=== PATIENT | female | born 1960 | race Caucasian/White ===

== ENCOUNTER → 2016-05-29 | Outpatient (CLI) | payer MEDICAID ==
[~2016-05-29] MED LIST: CIPROFLOXACIN500 MG PO; ESTRACE 2MG. TAB2 MG PO; LEVOTHYROXINE0.05 MG NG; PHENAZOPYRIDIN200 MG PO; PHENERGAN 25MG.25 M1 PO; TRAMADOL50 M1 PO; ZOCOR20 MG PO
--- NOTE | 2016-06-01 12:09 | RADIOLOGY REPORT PS360 ---
ESOPHAGUS (BA. SWALLOW) Ordering Physician: Luther Demarco MD Patient Age: 56 years: Female HISTORY: RT THYROID NODULE TECHNIQUE: Images of the esophagus performed by Dr. Guadalupe following patient ingestion of barium. AP and lateral projection. 1 minute 45 seconds fluoroscopy time utilized FINDINGS Cervical esophagus appears satisfactory. Normal distensibility. No mass. No web. Normal cricopharyngeus muscle. No displacement. Esophagus as well as trachea Remain fairly midline with no significant displacement. The vallecula and piriform sinuses unremarkable. Thoracic esophagus appears satisfactory with no lesions. No hiatal hernia. Normal distensibility. --- IMPRESSION: ------- 1. normal appearing cervical and thoracic esophagus. No lesions nor significant appearing extrinsic compression
--- NOTE | 2016-06-09 17:21 | RADIOLOGY REPORT PS360 ---
US CYST ASPIRATION, FNA/W GUIDANCE, US THYROID HISTORY: RT THYROID NODULE ORDERING PHYSICIAN: Luther Demarco MD PATIENT AGE: 56 years COMPARISON: 05/10/2016 ultrasound Prebiopsy ultrasound. The nodule of interest is very difficult to ascertain and measures less than 1 cm and is difficult to distinguish from adjacent thyroid gland. TECHNIQUE: Following obtaining informed consent, using aseptic technique and local anesthesia with buffered lidocaine, fine-needle aspiration was performed of the nodule of interest using sonographic guidance. 3 passes were made into the nodule with a 25-gauge needle. Specimen was given to cytology. The patient tolerated the procedure well without evidence of immediate complications and left the ultrasound suite in stable condition. CYTOLOGY:Nondiagnostic specimen IMPRESSION: Nondiagnostic FNA. Due to the difficulty in ascertaining the lesion, would recommend follow-up ultrasound as originally mentioned in the ultrasound exam of 05/10/2016 as opposed to repeat biopsy. Nuclear imaging of the thyroid gland may also be of further value.
== END ==
LOC: RAD 05-23 10:00
PROC: 0G9H3ZX Drainage of Right Thyroid Gland Lobe, Percutaneous Approach, Diagnostic (ICD-10-PCS; principal; 2016-05-29)
DX: E04.1 Nontoxic single thyroid nodule (principal)

== ENCOUNTER 2016-09-07 10:05 | Day surgery (SDC) | payer MEDICAID ==
[~2016-09-07] VITALS: Ht 162.6 cm; Wt 108.4 kg
[~2016-09-07 10:05] MED LIST changes: +AZITHROMYCIN; +BISOPROLOL 5MG T5 MG PO; +LISINOPRIL/HCTZ1 TA3 FT
[2016-09-07 11:21] LABS: HEMOGLOBIN 12.6 g/dL (12.2-16.2); LYMPH # 2.9 K/mm3 (0.7-4.5); LYMPH % 31.8 % (10-50.0)
[2016-09-07 11:22] LABS: BUN 21 mg/dL (7-18)
[2016-09-07 11:23] LABS: GFR (ESTIMATED) 74 ML/MIN (59-)
--- NOTE | 2016-09-07 14:06 | Anesthesia Record ---
Anesthesia Record Part I Total IV fluids: 1400 EBL (ml): 0 Urine Output: 0 B/P: 112/63 % SaO2: 95 Pulse: 83 Resps: 12 Temp: 98 Patient is: Awake, Stable Stable to PACU at: 1400 at 1406
--- NOTE | 2016-09-07 14:07 | Anesthesia Record ---
Anesthesia Record Part II Discharge time: 1430 Destination: Same day surgery PACU nurse assessment review? Yes Patient is: Awake, Stable Anesthesia complications? No at 1406
[2016-09-07 16:06] VITALS: BP 102/64
--- NOTE | 2016-09-21 12:54 | Operative Note-Urology ---
Procedure/Operative Record Procedure DATE OF PROCEDURE: 09/07/16 PREOPERATIVE DIAGNOSIS: Bladder stone and eroded suture material POSTOPERATIVE DIAGNOSIS: Same PROCEDURE PERFORMED: Cystoscopy with laser cystolitholapaxy of stone and suture material SURGEON: Asa Osman ANESTHESIA: Gen. BRIEF HISTORY: 56-year-old white female with a history of bladder stones secondary to eroded suture material in the bladder. Had a recurrence of some suprapubic discomfort and recent cystoscopy showed a recurrent stone at the 2 o'clock position near the bladder neck. OPERATIVE NOTE: Patient taken to the operating room after informed consent was obtained. Placed Ring table in the supine position and general anesthesia administered. Preoperative antibiotics administered and sequential compression devices placed. She was then placed into the dorsal lithotomy position and prepped and draped in the standard surgical fashion. The 21 [place]er cystoscope placed into the urethra and into the bladder. The bladder was examined in a systematic fashion and was within normal limits other than the small stone noted at the 2 o'clock position near the bladder neck. This was very difficult to see with the 30 degree lens R laser fiber was passed through the scope and we were able to position our scope so that the stone was fragmented and extracted off of the bladder wall. Underneath the stone was the clear suture material and the suture material was also treated with the holmium laser fiber. After treatment the stone was removed and the scope removed. Patient tolerated procedure well no cold medications discharged to the recovery room in good condition. EBL (ml): 0 IMPRESSION: Recurrent bladder stone on eroded suture material in the bladder PLAN: Cystoscopy and bladder stone removal successful today. Suture material also treated and hopefully there is no further recurrences. at 1254
== END 2016-09-07 15:50 | disposition home or self-care (01) ==
LOC: SDC 10:05
PROVIDERS: Otolaryngology; Urology
PROC: 0TCB8ZZ Extirpation of Matter from Bladder, Via Natural or Artificial Opening Endoscopic (ICD-10-PCS; principal; 2016-09-07 12:00)
DX: N21.0 Calculus in bladder (principal)
CPT/HCPCS: J2405

== ENCOUNTER 2016-12-28 16:44 | Emergency (ER) | payer MEDICAID ==
[~2016-12-28] VITALS: Ht 170.2 cm; Wt 112.5 kg
[2016-12-28 17:18] LABS: URINE BILIRUBIN - DIPSTICK NEGATIVE (NEG); URINE BLOOD TRACE-INTACT (NEG)
--- OUTSIDE RECORDS SUMMARY | 2016-12-28 17:18 | External Medical Summary Rpt | CCD ---
Author Author [facility] Organization [facility] Address Unknown Phone Unavailable Purpose Continuity of Care Document - through 2016
--- OUTSIDE RECORDS SUMMARY | 2016-12-28 17:18 | External Medical Summary Rpt ---
Author Author [facility] Organization [facility] Address Unknown Phone Unavailable Care Team Providers Care Engineering Production Worker Name Role Phone JANETH STAPLES PCP [phone] Encounter [facility] Date(s): 02/03/16 - 02/28/16 [facility] [address] [place] [address]- Discharge Disposition: OP Self Care or Home Attending Physician: KAYLEY KELLY MD-ONC Admitting Physician: KAYLEY KELLY MD-ONC Referring Physician: SERA WOLFE MD-BEBETO Reason for Visit OTH TYPES OF NON-HODGKIN LYMPHOMA, LYMPH NODES MULT SITE Vital Signs No data available for this section Problem List Condition Effective Status Health Informant Dates Status Arthritis(Co Active nfirmed) COPD(Confirm Active ed) Hyperlipidem Active ia(Confirmed ) Lymphoma(Con Active firmed) Sleep Active apnea(Confir med) Thyroid Active disease(Conf irmed) Allergies, Adverse Reactions, Alerts No Known Medication Allergies Medications No data available for this section Results No data available for this section Immunizations No data available for this section Procedures No data available for this section Social History Social History Response Type Smoking Status Former smoker; Years of Tobacco Use 31; Packs/Tins Daily 1.5; Used Tobacco, but Quit Yes; Month Tobacco Last Used 2009 Assessment and Plan No data available for this section Hospital Discharge Instructions No data available for this section
--- OUTSIDE RECORDS SUMMARY | 2016-12-28 17:18 | External Medical Summary Rpt ---
Author Author [facility] Organization [facility] Address Unknown Phone Unavailable Care Team Providers Care Glassware Verifier Name Role Phone JANETH STAPLES PCP [phone] Encounter [facility] Date(s): 02/03/16 - 02/28/16 [facility] [address] [place] [id number]- [phone] Discharge Disposition: OP Self Care or Home [...]
--- OUTSIDE RECORDS SUMMARY | 2016-12-28 17:18 | External Medical Summary Rpt | CCD ---
Author Author [facility] Address Unknown Phone Purpose Continuity of Care Document - through 2016
--- OUTSIDE RECORDS SUMMARY | 2016-12-28 17:19 | External Medical Summary Rpt | CCD ---
Author Author , [facility] SPEARS Address Unknown Phone [email or web address] Immunization Name Date Rout CVX Reac Dose Comm Prov Is Faci e tion ent ider Refu lity Give sed n Infl 10-2 Intr 140 0.5 Hist [facility] No [facility] uenz 5-20 amus mL oric ALEK AID0 a, 17 cula al AYMA 3914 P-Fr r Info N ee rmat ion - Sour ce Unsp ecif ied PCV1 10-2 Intr 133 0.5 Hist KHAF No RITE 3 5-20 amus mL oric ALEK AID0 17 cula al AYMA 3914 r Info N rmat ion - Sour ce Unsp ecif ied
--- OUTSIDE RECORDS SUMMARY | 2016-12-28 17:19 | External Medical Summary Rpt | CCD ---
Author Author , REGAN SPEARS Address Unknown Phone [email or web address] Immunization Name Date Rout CVX Reac Dose [...]
--- OUTSIDE RECORDS SUMMARY | 2016-12-28 17:19 | External Medical Summary Rpt ---
Author Author VIVIANEDOROTHY Eaton, [facility] [employer] Organization [facility] [employer] Address Unknown Phone Unavailable Results Basic metabolic panel in Blood Observa Value Referen Units Interpr Notes Date tion ce etation Range Urea 7 - 18 mg/dL High No Sep 07 nitrogen informati 2016 [Mass/vol on in 11:08 AM ume] in source Serum or data Plasma Calcium 8.5 - mg/dL Normal No Sep 07 [Mass/vol 10.1 informati 2016 ume] in on in 11:08 AM Serum or source Plasma data Chloride 98 - 107 mmoL/L Normal No Sep 07 [Moles/vo informati 2016 lume] in on in 11:08 AM Serum or source Plasma data Carbon 21.0 - mmoL/L Normal No Sep 07 dioxide, 32.0 informati 2016 total on in 11:08 AM [Moles/vo source lume] in data Serum or Plasma Creatinin 0.55 - mg/dL Normal No Sep 07 e 1.02 informati 2016 [Mass/vol on in 11:08 AM ume] in source Serum or data Plasma Estimated 59- ML/MIN No REFERENCE Sep 07 informati RANGE: 2017 glomerula on in >60 11:08 AM r source ML/MIN/1. filtratio data 73 SQUARE n rate METERSIf (GF this patient is -A merican, then multiply theresult by 1.210. Glucose 74 - 106 mg/dL High No Sep 07 [Mass/vol informati 2016 ume] in on in 11:08 AM Serum or source Plasma data Potassium 3.5 - 5.1 mmoL/L Normal No Sep 07 informati 2016 [Moles/vo on in 11:08 AM lume] in source Serum or data Plasma Sodium 136 - 145 mmoL/L Normal No Sep 07 [Moles/vo informati 2016 lume] in on in 11:08 AM Serum or source Plasma data CBC W Auto Differential panel in Blood Observa Value Referen Units Interpr Notes Date ti ce etation Range Basophils 0 - 0.2 K/MM3 Normal No Sep 07 inform2016 [#/volume on in 11:08 AM ] in source Blood by data Automated count Basophils 0.1 - 2.0 % Normal No Sep 07 / inform2016 leukocyte on in 11:08 AM s in source Blood by data Automated count Eosinophi 0.0 - 0.4 K/mm3 Normal No Sep 07 ls informati 2016 [#/volume on in 11:08 AM ] in source Blood by data Automated count Eosinophi 0.1 - % Normal No Sep 07 ls/100 12.0 informati 2016 leukocyte on in 11:08 AM s in source Blood by data Automated count Granulocy 1.8 - 7.8 K/mm3 Normal No Sep 07 swapnil informati 2016 [#/volume on in 11:08 AM ] in source Blood by data Automated count Granulocy 37.0 - % Normal No Sep 07 swapnil/100 80.0 informati 2016 leukocyte on in 11:08 AM s in source Blood by data Automated count Hematocri 37.0 - % Normal No Sep 07 t [Volume 47.0 informati 2016 on in 11:08 AM Fraction] source of Blood data Hemoglobi 12.2 - g/dL Normal No Sep 07 n 16.2 informati 2016 [Mass/vol on in 11:08 AM ume] in source Blood data Lymphocyt 0.7 - 4.5 K/mm3 Normal No Sep 07 es inform2016 [#/volume on in 11:08 AM ] in source Unspecifi data ed specimen by Automated count Lymphocyt 10 - 50.0 % Normal No Sep 07 es inform2016 [#/volume on in 11:08 AM ] in source Unspecifi data ed specimen by Automated count Erythrocy 27 - 31.2 pg Low No Sep 07 te mean 2016 corpuscul on in 11:08 AM ar source hemoglobi data n [Entitic mass] Erythrocy 31.8 - g/dl Normal No Sep 07 te mean 35.4 inform2016 corpuscul on in 11:08 AM ar source hemoglobi data n concentra tion [Mass/vol ume] by Automated count Erythrocy 82.2 - fl Normal No Sep 07 te mean 97.8 informati 2016 corpuscul on in 11:08 AM ar volume source [Entitic data volume] by Automated count Monocytes 0.1 - 1.0 K/mm3 Normal No Sep 07 informati 2016 [#/volume on in 11:08 AM ] in source Blood by data Automated count Monocytes 1.7 - 9.3 % Normal No Sep 07 /100 informati 2016 leukocyte on in 11:08 AM s in source Blood by data Automated count Platelet 7.4 - fl Normal No Sep 07 mean 10.4 informati 2016 volume on in 11:08 AM [Entitic source volume] data in Blood by Automated count Platelets 142 - 424 K/mm3 Normal No Sep 07 informati 2016 [#/volume on in 11:08 AM ] in source Blood data Erythrocy 4.2 - 5.4 M/mm3 Normal No Sep 07 swapnil informati 2016 [#/volume on in 11:08 AM ] in source Amniotic data fluid Erythrocy 11.5 - % Normal No Sep 07 te 17.5 informati 2016 distribut on in 11:08 AM ion width source [Entitic data volume] by Automated count Leukocyte 4.8 - K/MM3 Normal No Sep 07 s 10.8 informati 2016 [#/volume on in 11:08 AM ] in source Blood data Basic metabolic panel in Blood Observa Value Referen Units Interpr Notes Date tion ce etation Range Urea 7 - 18 mg/dL High No Jul 6 nitrogen inform2016 [Mass/vol on in 10:00 AM ume] in source Serum or data Plasma Calcium 8.5 - mg/dL Normal No Jul 6 [Mass/vol 10.1 informati 2016 ume] in on in 10:00 AM Serum or source Plasma data Chloride 98 - 107 mmoL/L Normal No Jul 6 [Moles/vo informati 2016 lume] in on in 10:00 AM Serum or source Plasma data Carbon 21.0 - mmoL/L Normal No Jul 6 dioxide, 32.0 informati 2016 total on in 10:00 AM [Moles/vo source lume] in data Serum or Plasma Creatinin 0.55 - mg/dL Normal No Jul 6 e 1.02 informati 2016 [Mass/vol on in 10:00 AM ume] in source Serum or data Plasma Estimated 59- ML/MIN No REFERENCE Kayden 6 informati RANGE: 2017 glomerula on in >60 10:00 AM r source ML/MIN/1. filtratio data 73 SQUARE n rate METERSIf (GF this patient is -A merican, then multiply theresult by 1.210. Glucose 74 - 106 mg/dL High No Jul 25 [Mass/vol informati 2017 ume] in on in 10:00 AM Serum or source Plasma data Potassium 3.5 - 5.1 mmoL/L Normal No Jul 25 informati 2016 [Moles/vo on in 10:00 AM lume] in source Serum or data Plasma Sodium 136 - 145 mmoL/L Normal No Jul 25 [Moles/vo informati 2017 lume] in on in 10:00 AM Serum or source Plasma data
[2016-12-28 17:25] LABS: HEMOGLOBIN 12.4 g/dL (12.2-16.2); LYMPH # 3.4 K/mm3 (0.7-4.5); LYMPH % 27.7 % (10-50.0)
--- NOTE | 2016-12-28 17:44 | Emergency Room Report ---
See Addendum History of Present Illness Time Seen by [id number] Presenting Problem in Triage Pt arrived:Walked Presenting Problem:PT COMPLAINS OF LEFT SIDED [PAIN FOR 2 DAYS. 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 N Clinical Suspician of Infection? N Mental Status: 1 - Regular (Normal Baseline) Sepsis Risk:Low Sepsis Risk Have you (or family members/close friends) recently traveled outside the [place]? N If Yes, where/when: Have you had exposure to infectious disease within the past month? TB? Other? Specify: 56 years old white female with history of lung disease and bladder tuck. He developed left-sided abdominal pain with no nausea vomiting no diarrhea no dysuria or hematuria frequency. It is sharp in character with no radiation, no fever or chills. Source patient, RN notes reviewed, family Exam Limitations no limitations ALLERGIES Coded Allergies: No Known Allergies (09/14/16) Home Medications Reported Medications Levothyroxine Sodium (Levothyroxine) 0.05 MG NG DAILY BISOPROLOL FUMARATE (Bisoprolol 5MG) 2.5 MG PO DAILY Lisinopril & Hctz (Lisinopril-Hctz 10-12.5 MG Tab) 1 TAB FT DAILY Azithromycin 1 POW NA History Medical History General Angina: No [place]: No Hypertension? Yes Hyperlipidemia? No CHF? No COPD? Yes Asthma? No Hernia? No CVA? No Seizures? No Diabetes? No UTI? Yes Stones? Yes GB Disease: No Hepatitis? No Cataracts? No Glaucoma? No MRSA? No TB? No Cancer? Yes Site: LYMPH NODE LEFT NECK More? 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 Respiratory no symptoms reported Cardiovascular no symptoms reported Gastrointestinal see HPI, abdominal pain Genitourinary no symptoms reported. Musculoskeletal no symptoms reported Skin no symptoms reported Psychiatric/Neurological no symptoms reported Physical Exam Vital Signs Vital Signs Date Time Temp Pulse Resp B/P Pulse O2 O2 Flow FiO2 Ox Delivery Rate 12/28 1918 18 12/28 1816 99.1 86 20 129/73 95 12/28 1747 20 12/28 1701 99.1 86 22 129/73 95 12/28 1658 99.1 86 22 129/73 95 - WBC >12,000 or <4,000 or 10% bands? 2 or more SIRS Criteria Met? B/P:129/73 MAP:91 Creatinine >2.0? UA output<0.5ml/kg/hr for 2 hrs? Platelet count >100,000? Lactate >2.0mmol/1? INR >1.2 or PTT > than 60 sec? Evidence of Organ Dysfunction? Provider documented clinical suspician of infection? N Sepsis Criteria Count: 1 Sepsis Risk: Low Sepsis Risk General Appearance normal appearance, WD/WN Eye Exam - bilateral eye normal exam, bilateral eye PERRL, bilateral eye EOMI Ear, Nose, Throat hearing grossly normal, normal ENT inspection Neck normal inspection, non-tender, supple, full range of motion Respiratory Status Yes: trachea midline, chest symmetrical, non tender chest. No: respiratory distress. Lung Sounds bilateral: normal breath sounds, lungs clear. Cardiovascular normal exam, regular rate/rhythm, no peripheral edema, no gallop, no JVD, no murmur, no rub, normal peripheral pulses Peripheral Pulses Pulses normal Yes Gastrointestinal soft, no pulsatile mass, no guarding, rebound, tenderness, abdomen is soft abdomen with LEFT sided abdominal tenderness, there is no LEFT CVA tenderness, there is rebound tenderness on the LEFT side of the abdomen, positive bowel sounds. Equal femoral pulses bilaterally. Back normal inspection, no CVA tenderness, no vertebral tenderness Neurologic alert, legal officer II-XII nml as tested, normal exam, oriented x 3 Reflexes Reflexes normal Yes Mental status normal mood/affect Skin intact, normal color, warm/dry Medical Decision Making LABS/Meds/Orders Pt receiving controlled substance in ED? No Results/Orders Laboratory Tests 12/28/16 171: Troponin I < 0.02 12/28/161714: Sodium 137, Potassium 3.9, Chloride 100, Carbon Dioxide 30, BUN 18, Creatinine 1.0, Estimated Creat Clear 112, Estimated GFR (MDRD) 57 L, Glucose 144 H, Calcium 9.0, Total Bilirubin 0.3, AST 17, ALT 34, Alkaline Phosphatase 59, Total Protein 7.7, Albumin 3.8, Globulin 3.9 H, Albumin/Globulin Ratio 1.0 L, Amylase 36, Lipase 302, WBC 12.3 H, RBC 4.70, Hgb 12.4, Hct 39.0, MCV 82.9, RDW 13.6, Plt Count 228, MPV 9.4, Gran % 66.8, Gran # 8.2 H, Lymphocytes % 27.7, Monocytes % 3.3, Eosinophils % 1.8, Basophils % 0.5, Lymphocytes # 3.4, Monocytes # 0.4, Eosinophils # 0.2, Basophils # 0.1, PUBS MCHC 31.9, MCH 26.5 L 12/28/16 1709: Urine Color YELLOW, Urine Appearance CLEAR, Urine pH 6.0, Ur Specific [place] 1.025, Urine Protein NEGATIVE, Urine Ketones NEGATIVE, Urine Blood TRACE-INTACT, Urine Nitrate NEGATIVE, Urine Bilirubin NEGATIVE, Urine Urobilinogen 0.2, Ur Leukocyte Esterase TRACE H, Urine RBC OCC, Urine WBC 5-10, Ur Squamous Epith Cells 5-10, Urine Bacteria 3+, Urine Glucose NEGATIVE Current Medication Orders Sig/Georgina Start time Last Medication Dose Route Stop Time Status Admin Ceftriaxone Sodium 1 GM ONCE ONE 12/28 1914 AC 12/28 Sodium Chloride 50 ML IV 12/28 Morphine Sulfate 2 MG ONCE ONE 12/28 1914 DC 12/28 IV 12/28 Ceftriaxone Sodium 0 .STK-MED ONE 12/28 1913 DC IV Sodium Chloride 50 ML .STK-MED ONE 12/28 1913 DC IV Morphine Sulfate 0 .STK-MED ONE 12/28 1912 DC .ROUTE Iopamidol 75 ML ONCE ONE 12/28 1899 UNV 12/28 IV 12/28 1900 185 Sodium Chloride 10 ML ONCE ONE 12/28 1899 UNV 12/28 IV 12/28 1900 185 Ketorolac 30 MG ONCE ONE 12/28 1744 DC 12/28 Tromethamine IV 12/28 174 1747 Sodium Chloride 1,000 ML .Q1H1M 12/28 1744 DC 12/28 IV 12/28 1845 1746 Sodium Chloride 10 ML PRN PRN 12/28 1745 AC IV 12/29 1740 Ketorolac 0 .STK-MED ONE 12/28 1744 DC Tromethamine .ROUTE Sodium Chloride 1,000 ML .STK-MED ONE 12/28 1744 DC IV Sodium Chloride 10 ML PRN PRN 12/28 1715 AC IV 12/29 1706 Orders Procedure Date/time Status DIET-NOTHING BY MOUTH 12/[address] SCAN REQ 12/28 174 Complete TROPONIN I 12/28 174 Complete CULTURE, URINE 12/28 170 Active IV SALINE LOCK 12/28 170 Active URINALYSIS/COMPLETE 12/28 1705 Complete LIPASE 12/28 170 Complete CBC WITH AUTO DIFF 12/28 1705 Complete CHEM 12 PROFILE 12/28 1705 Complete AMYLASE 12/[address] ABD & PELVIS W/ CONTRAST 12/28 UNK Active Departure Departure Time of Disposition 1919 Disposition Still a Patient Clinical Impression Primary Impression: Abdominal pain of unknown cause Secondary Impressions: UTI (urinary tract infection) Condition STABLE Referrals Kwame KEYS,Wu Petty (Family) Discharge Counseling Counseled pt/family regarding diagnosis, test results, medications/RX, home care, follow up needs ED Critical Care Critical Care No If Critical Care minutes are documented, the time involved in the performance of seperately reportable procedures was not counted toward critical care time documented. I directly delivered medical care to this critically ill and/or injured patient. Timely evaluation and treatment was necessary to address the significant organ system(s) dysfunction present in this patient. at 1921
[2016-12-28] MEDS ORDERED: CIPRO 500MG TA500 MG PO (19:46)
[2016-12-28] MEDS ORDERED: FLAGYL500 M1 PO (19:46)
[2016-12-28] MEDS ORDERED: NORCO 325 MG-51 TAB PO (19:46)
[2016-12-28 20:10] VITALS: BP 139/85
--- NOTE | 2016-12-29 06:37 | RADIOLOGY REPORT PS360 ---
CT ABD PELVIS W/ CONTRAST CLINICAL INDICATION: Left upper quadrant pain, left-sided abdominal pain with rebound tenderness LEFT SIDE PAIN WITH REBOUND ORDERING PHYSICIAN: Brien Puente MD PATIENT AGE: 56 years COMPARISON: None TECHNIQUE: Axial images obtained with sagittal and coronal reformats. PROCEDURE: Oral Contrast: None IV Contrast: 75 mL Isovue-[id number]. FINDINGS: Lower thorax: No acute finding ABDOMEN: Liver: 12 mm isodense lesion in the lateral aspect of the left hepatic lobe unchanged probably due to cyst Gallbladder: Contracted. No obvious stones Pancreas: No masses or peripancreatic fluid collections. Spleen: Mild splenomegaly at 15 cm Adrenals: Unremarkable Kidneys/ureters: No masses. No renal calculi. No hydronephrosis. No perinephric fluid collections. No ureteral dilatation or obvious ureteral calculi. Small left renal cysts Stomach bowel: There is diverticulosis of the descending and sigmoid colon. There is some focal thickening of the mid aspect of the descending colon with blurring of the pericolic fat and mild thickening of the left paracolic gutter consistent with acute diverticulitis. No evidence of abscess or perforation. Appendix: No evidence of appendicitis. PELVIS: Reproductive: Hysterectomy Bladder: Nondistended. No obvious stones or masses. ABDOMEN & PELVIS: Peritoneum: No free air or focal fluid collections Lymph nodes: No enlarged lymph nodes apparent. Vasculature: No evidence of abdominal aortic aneurysm. No retroperitoneal hemorrhage evident. Bones: No acute fracture IMPRESSION: 1. Acute diverticulitis of the descending colon. No evidence of abscess or perforation. There is colonic diverticulosis 2. Mild splenomegaly
== END 2016-12-28 20:11 | disposition still patient (30) ==
LOC: ER 16:44
PROVIDERS: Emergency Medicine
DX: K57.92 Diverticulitis of intestine, part unspecified, without perforation or abscess without bleeding (principal); I10 Essential (primary) hypertension; N30.00 Acute cystitis without hematuria
CPT/HCPCS: Q9967

== ENCOUNTER → 2017-01-02 | Outpatient (CLI) | payer MEDICAID ==
[~2017-01-02] MED LIST changes: +CIPRO 500MG TA500 MG PO; +FLAGYL500 M1 PO; +NORCO 325 MG-51 TAB PO
[2017-01-02 18:36] LABS: HEMOGLOBIN 12.6 g/dL (12.2-16.2); LYMPH # 3.1 K/mm3 (0.7-4.5); LYMPH % 30.7 % (10-50.0)
[2017-01-02 20:16] LABS: BUN 14 mg/dL (7-18)
[2017-01-02 20:18] LABS: GFR (ESTIMATED) 74 ML/MIN (59-)
== END ==
LOC: LAB 16:50
PROVIDERS: Emergency Medicine
DX: R20.0 Anesthesia of skin (principal)

== ENCOUNTER → 2017-01-29 | Outpatient (CLI) | payer MEDICAID ==
--- NOTE | 2017-01-29 15:20 | CARDIOVASCULAR REPORT ---
"Cerebrovascular Exam Indications: TIA 434.91. IMPRESSIONS 1. The bilateral vertebral arteries are patent with normal antegrade flow. 2. Study suggests less than 20% stenosis involving the right internal carotid artery and the left internal carotid artery. No change from the study of 08-Oct-2015. Carotid duplex study. Complete study and Doppler flow study including spectral analysis, color and rios scale imaging. Height: Height: 170.2cm. Height: 67in. Weight: Weight: 113.4kg. Weight: 249.5lb. Body mass index: BMI: 39.2kg/m^2. Body surface area: BSA: 2.37m^2. Location: Vascular laboratory. Patient status: Outpatient. Tables: Arterial flow: + +--------+--------+ |Location |V sys |V ed | + +--------+--------+ |Right CCA - proximal|131cm/s |32.2cm/s| + +--------+--------+ |Right CCA - distal |99cm/s |33.8cm/s| + +--------+--------+ |Right ECA |134cm/s |--------| + +--------+--------+ |Right ICA - proximal|77.3cm/s|32.7cm/s| + +--------+--------+ |Right ICA - mid |99.9cm/s|39.6cm/s| + +--------+--------+ |Right ICA - distal |93cm/s |40.2cm/s| + +--------+--------+ |Right vertebral |57.4cm/s|--------| + +--------+--------+ |Left CCA - proximal |115cm/s |35.6cm/s| + +--------+--------+ |Left CCA - distal |123cm/s |43.3cm/s| + +--------+--------+ |Left ECA |108cm/s |--------| + +--------+--------+ |Left ICA - proximal |87.4cm/s|32.4cm/s| + +--------+--------+ |Left ICA - mid |93.8cm/s|35.8cm/s| + +--------+--------+ |Left ICA - distal |97.2cm/s|35.8cm/s| + +--------+--------+ |Left vertebral |50.6cm/s|--------| + +--------+--------+ Velocity ratios: + + + + + + | |Right, V sys|Right, V ed|Left, V sys|Left, V ed| + + + + + + |Max ICA/dist CCA|1.01 |1.19 |0.79 |0.83 | + + + + + + (Report amended ) Electronically signed by: Claude Jones [id number]"
== END ==
LOC: RT 14:43
DX: G45.9 Transient cerebral ischemic attack, unspecified (principal)